=== PATIENT | female | born 1960 | race Caucasian/White ===

== ENCOUNTER 2018-07-08 11:56 | Emergency (ER) | payer SELFPAY ==
[2018-07-08] MEDS ORDERED: NS 1,000 ML IV ONE ×2 (12:20→12:27)
--- NOTE | 2018-07-08 12:22 | EDPHY ---
H & P Time Seen by Provider: 07/08/18 12:22 HPI/ROS: CHIEF COMPLAINT: Headache HISTORY OF PRESENT ILLNESS: Patient woke up early this morning with a mild headache and then continue this morning and she thought it was due to a hangover. She that dose in the alcohol and the food she ate last night. But an hour prior to arrival it got much worse. It is on the vertex of her head and associated with nausea. She does not really have light sensitivity and no vomiting. No recent injury or trauma no visual symptoms. Denies dizziness or vertigo. REVIEW OF SYSTEMS: Eye: no change in vision ENT: Mild sore throat at this time Cardiac: no chest pain or syncope Pulmonary: no cough or SOB Abdomen: no vomiting, diarrhea, abdominal pain Musculoskeletal: No neck pain or neck stiffness Skin: no rash Neuro: HPI Constitutional: no fever : no urinary symptoms A comprehensive 10 point review of systems is otherwise negative aside from elements mentioned in the history of present illness. PAST MEDICAL HISTORY: Negative Family history: Negative for aneurysm or intracranial hemorrhage Social history: Nonsmoker General Appearance: Alert and conversant, cooperative. Eyes: No scleral icterus. Pupils equal reactive extraocular motion intact. ENT, Mouth: Normal mucous membranes. Normal tympanic membranes. No facial tenderness or swelling. Respiratory: Normal respiratory effort, breath sounds equal, lungs are clear to auscultation. Cardiovascular: Regular rate and rhythm. Gastrointestinal: Abdomen is soft and non tender. Neurological: Alert, face symmetric, normal motor and sensory in extremities. Speech fluent, normal mentation. Skin: Warm and dry, no rashes. Musculoskeletal: Normal range of motion of the neck, no meningeal signs. Psychiatric: Not agitated. Emergency Department course/MDM: Fentanyl 100, Zofran 4, dexamethasone 10. She took Advil at home and it did not help her headache. Noncontrast head CT discussed and consented. 1424: Negative head CT per Dr. Daly. Patient re-evaluated at this time. Her symptoms are completely gone. She is warned that sentinel bleed from subarachnoid cannot be 100% excluded without lumbar puncture. Warned of the risks of delay or failure to diagnose SAH including disability and , patient says she would like to decline the procedure and she has capacity to make decisions regarding her care. Also considered but I think unlikely are venous thromboembolism, dissection, [employer] infection, glaucoma or other ophthalmologic problem, ENT infection. Smoking Status: Never smoked Constitutional: Initial Vital Signs Temperature (C) 36.5 C 07/08/18 12:00 Heart Rate 80 07/08/18 12:00 Respiratory Rate 16 07/08/18 12:00 Blood Pressure 176/103 H 07/08/18 12:00 O2 Sat (%) 96 07/08/18 12:00 O2 Delivery Mode Room Air O2 (L/minute) 2 Allergies/Adverse Reactions: No Known Allergies Allergy (Unverified 07/08/18 11:59) Home Medications: Medication Instructions Recorded NK [No Known Home Meds] 07/08/18 Medical Decision Making - Diagnostics Imaging Results: Imaging Impressions Head CT 07/08/18 12:27 Impression: 1. No evidence for acute intracranial abnormality. 2. Mild periventricular and deep hemispheric white matter change that can be seen with small vessel ischemic disease. 3. Left maxillary sinusitis. Results called and discussed with Gregory Swanson MD on July 08, 2018 at 2:27 p.m. Imaging: Discussed imaging studies w/ call or contact centre operator Radiologist - Data Points Laboratory Results: Laboratory Results 07/08/18 12:18 07/08/18 12:18 07/08/18 07/08/18 12:18 12:18 WBC 5.24 10^3/uL 10^3/uL (3.80-9.50) RBC 5.07 10^6/uL 10^6/uL (4.18-5.33) Hgb 15.5 g/dL g/dL (12.6-16.3) Hct 46.0 % % (38.0-47.0) MCV 90.7 fL fL (81.5-99.8) MCH 30.6 pg pg (27.9-34.1) MCHC 33.7 g/dL g/dL (32.4-36.7) RDW 12.6 % % (11.5-15.2) Plt Count 269 10^3/uL 10^3/uL (150-400) MPV 9.3 fL fL (8.7-11.7) Neut % (Auto) 43.3 % % (39.3-74.2) Lymph % (Auto) 42.2 % % (15.0-45.0) [place] % (Auto) 9.5 % % (4.5-13.0) Eos % (Auto) 3.8 % % (0.6-7.6) Baso % (Auto) 0.8 % % (0.3-1.7) Nucleat RBC Rel Count 0.0 % % (0.0-0.2) Absolute Neuts (auto) 2.27 10^3/uL 10^3/uL (1.70-6.50) Absolute Lymphs (auto) 2.21 10^3/uL 10^3/uL (1.00-3.00) Absolute Monos (auto) 0.50 10^3/uL 10^3/uL (0.30-0.80) Absolute Eos (auto) 0.20 10^3/uL 10^3/uL (0.03-0.40) Absolute Basos (auto) 0.04 10^3/uL 10^3/uL (0.02-0.10) Absolute Nucleated RBC 0.00 10^3/uL 10^3/uL (0-0.01) Immature Gran % 0.4 % % (0.0-1.1) Immature Gran # 0.02 10^3/uL 10^3/uL (0.00-0.10) Sodium 140 mEq/L mEq/L (135-145) Potassium 3.8 mEq/L mEq/L (3.5-5.2) Chloride 104 mEq/L mEq/L (97-110) Carbon Dioxide 24 mEq/l mEq/l (22-31) Anion Gap 12 mEq/L mEq/L (6-14) BUN 12 mg/dL mg/dL (7-23) Creatinine 0.6 mg/dL mg/dL (0.6-1.0) Estimated GFR > 60 Glucose 101 mg/dL H mg/dL (70-100) Calcium 9.7 mg/dL mg/dL (8.5-10.4) Medications Given: Discontinued Medications Dexamethasone (Decadron Injection) 10 mg IVP EDNOW ONE Stop: 07/08/18 12:28 Last Admin: 07/08/18 12:33 Dose: 10 mg Fentanyl (Sublimaze) 100 mcg IVP EDNOW ONE Stop: 07/08/18 12:28 Last Admin: 07/08/18 12:33 Dose: 100 mcg Sodium Chloride (Ns) 1,000 mls @ 0 mls/hr IV ONCE ONE PRN Reason: Wide Open Stop: 07/08/18 12:21 Last Admin: 07/08/18 12:20 Dose: 1,000 mls Sodium Chloride (Ns) 1,000 mls @ 0 mls/hr IV ONCE ONE; Wide Open PRN Reason: Protocol Stop: 07/08/18 12:28 Last Admin: 07/08/18 14:17 Dose: Not Given Ondansetron HCl (Zofran) 4 mg IVP EDNOW ONE Stop: 07/08/18 12:28 Last Admin: 07/08/18 12:33 Dose: 4 mg Departure - Departure Disposition: Home, Routine, Self-Care Clinical Impression: Headache Qualifiers: Headache type: unspecified Headache chronicity pattern: acute headache Intractability: not intractable Qualified Code(s): R51 - Headache Condition: Good Instructions: Acute Headache (ED) Additional Instructions: Return if you get recurrent or severe headache, fever or vomiting. Referrals: Adilson Trammell DO [Medical Doctor] - As per Instructions
[2018-07-08] MEDS ORDERED: ONDANSETRON 4 MG/2 ML VIAL IVP ONE (12:27)
[2018-07-08] MEDS ORDERED: fentaNYL 100 MCG/2 ML INJ IVP ONE (12:27)
[2018-07-08] MEDS ORDERED: DEXAMETHASONE 10 MG/ML VIAL IVP ONE (12:27)
[2018-07-08 12:36] LABS: PLATELET COUNT 269 10^3/uL (150-400)
[2018-07-08 15:05] VITALS: BP 123/77
== END 2018-07-08 15:05 | disposition home or self-care (01) ==
DX: R51 Headache (principal); E86.9 Volume depletion, unspecified
CPT/HCPCS: 96374; J1100; J2405; J3010